=== PATIENT | male | born 1960 | race Caucasian/White ===

== ENCOUNTER → 2017-12-16 | Outpatient (CLI) | payer BC ==
--- NOTE | 2017-12-16 20:21 | CONS ---
CONSULTATION DATE OF SERVICE: 12/16/2017 57-year-old gentleman has been evaluated in the sleep center for possible obstructive sleep apnea-hypopnea syndrome. HISTORY OF PRESENT ILLNESS SLEEP WAKE EVALUATION: SLEEP SCHEDULE: Patient usual sleep schedule from 10 p.m. to 5:00 am, working days and from 11:00 p.m. to 6 am on weekends. FALLING ASLEEP: Usually no problem with falling asleep. He does not watch TV in bedroom. DURING SLEEP: According to his , he has loud snoring, witnessed episodes of stopped breathing during the sleep. Patient wakes up from sleep with choking, nocturia, dry mouth, heartburn, restless legs and sleep talking up to 6 times per night with nocturia x1. DURING THE DAY/SLEEP WAKE EVALUATION: No history of hypnagogic hallucinations, sleep paralysis or cataplexy. During the day, patient feels significantly sleepy. [place] Sleepiness Scale increased to 13. PAST MEDICAL HISTORY: Positive for episodes of colon obstruction. PAST SURGICAL HISTORY: Colon resection in 2007 for colon obstruction. SOCIAL HISTORY: Positive for smoking in the past, quit 20 years ago. Alcohol consumption 2 beers up to 3 times per week. FAMILY HISTORY: The patient does not have information about parents. His mom is healthy. The patient does not have information about his father at the present time. REVIEW OF SYSTEMS: Multiple awakenings from sleep, sleepiness during the day. PHYSICAL EXAM: gentleman without distress. BP 115/83, HR 80, RR 16, height 6 feet 2 inches. Weight 234, BMI 30.0, temperature 98.1. Oxygen saturation on room air 96%. Oropharynx low position of soft palate. Restriction of nasal breathing. Wide neck, 16 and one quarter inches in circumference. Neck Supple, no JVD. Thyroid is not palpable. LUNGS Clear to percussion and to auscultation. Good air exchange. No wheezing or rhonchi. HEART S1, S2 regular. No murmurs, gallops, or rubs. ABDOMEN : Soft and nontender. Bowel sounds are present. No organomegaly appreciated. EXTREMITIES No clubbing or cyanosis. FLIGHT LINE SERVICE ATTENDANT Awake, alert, and oriented X3. Cranial nerves 2 to 7 intact. There is no fasciculation or atrophy. noted. No focal deficits observed. IMPRESSION: 1. Snoring, witnessed episodes of stopped breathing during the sleep for multiple awakenings from sleep, low position of soft palate, and excessive daytime sleepiness. [place] Sleepiness Scale increased to 13. Wide neck. Obstructive sleep apnea-hypopnea syndrome. 2. Mild obesity, borderline to overweight, BMI over 30. 3. Status post colon obstruction. 4. Status post resection of colon for obstruction in 2007. PLAN: 1. Home sleep apnea test to confirm abnormalities of respiration during sleep. 2. Following plan after reviewing results of the sleep study. 3. Sleep hygiene with regular time bed for at least 8 hours. 4. No driving if feeling sleepiness. Thank you very much for referring this patient for consultation. Sincerely, Brown Frank MD, PhD, FAASM Diplomat of [employer] Taxi Proprietor of [facility] [place] MMODL / FAITHN: [id number] /
== END | disposition home or self-care (01) ==
LOC: SLEEP 16:26
PROVIDERS: ATTEND Internal Medicine
DX: G47.33 Obstructive sleep apnea (adult) (pediatric) (principal); E66.9 Obesity, unspecified; Z68.30 Body mass index [BMI] 30.0-30.9, adult; Z98.890 Other specified postprocedural states; Z87.19 Personal history of other diseases of the digestive system; Z87.891 Personal history of nicotine dependence
CPT/HCPCS: 99211

== ENCOUNTER → 2020-08-22 | Outpatient (CLI) | payer BC ==
--- NOTE | 2020-08-23 04:28 | SFUN ---
SLEEP CENTER FOLLOW UP NOTE DATE OF SERVICE: 08/22/2020 This 60-year-old gentleman who has been followed in Sleep Center for treatment of obstructive sleep apnea-hypopnea syndrome. The patient had home sleep apnea test in 2018 and since that time, he never came for follow-up visit to Sleep Clinic after he received the CPAP unit. The patient is able to use CPAP unit every night for the whole night and he sleeps well with the machine. No snoring. [place] Sleepiness Scale today is 2. I checked his CPAP unit. CPAP pressure ranged 8-15 with average pressure of 10 cm of water. Usage is 30 out of 30 nights for more than 4 hours with average usage 7.5 hours per night. Leak is only 8 L/minute which is good range. Apnea-hypopnea index is perfect 0.2. MEDICATIONS: None. PHYSICAL EXAMINATION: GENERAL: Patient in no distress. VITAL SIGNS: BP 126/89, HR 76, RR 15, height 6 feet 2-1/2 inches, weight 244 pounds, BMI 30.9, temperature 98.5, oxygen saturation on room air 98%. HEENT: PERRLA, EOMI. Evaluation of oropharynx shows low position of soft palate. NECK: Supple, no JVD. Thyroid is not palpable. LUNGS: Clear to percussion and to auscultation. Good air exchange. No wheezing or rhonchi. HEART: S1, S2 regular. No murmurs, gallops, or rubs. ABDOMEN: Soft and nontender. Bowel sounds are present. No organomegaly appreciated. EXTREMITIES: No clubbing or cyanosis. HEALTHCARE RECRUITER: Awake, alert, and oriented X3. Cranial nerves 2 to 7 intact. There is no fasciculation or atrophy. noted. No focal deficits observed. IMPRESSION: 1. Obstructive sleep apnea-hypopnea syndrome. Patient demonstrated 100% compliance with treatment, benefitting from treatment. 2. Mild obesity. 3. History of colon obstruction. 4. Status post colon resection for colon obstruction. PLAN: 1. Patient will continue to use PAP equipment every night for the whole night. 2. Sleep hygiene with regular time in bed for at least 7-1/2 to 8 hours. 3. Precautions related to driving. No driving if feeling sleepiness. 4. I will maintain all necessary prescription for PAP supplies including mask, tube, filters. 5. Watching weight. 6. No driving if feeling sleepiness. 7. Follow-up visit in 6 months or earlier if patient has any problems. Thank you very much for allowing me to participate in management of your patient. Sincerely, Brown Frank MD, PhD, FAASM Diplomat of [employer] Board of Internal Medicine Loan Originator of [facility] [place] MMRUSS / DANA: [id number] /
== END | disposition home or self-care (01) ==
LOC: SLEEP 16:29
PROVIDERS: ATTEND Internal Medicine
DX: G47.33 Obstructive sleep apnea (adult) (pediatric) (principal); E66.9 Obesity, unspecified; Z87.19 Personal history of other diseases of the digestive system; Z98.890 Other specified postprocedural states; Z99.89 Dependence on other enabling machines and devices; Z68.30 Body mass index [BMI] 30.0-30.9, adult

== ENCOUNTER → 2023-03-17 | Outpatient (CLI) | payer BC ==
--- NOTE | 2023-03-17 17:21 | P.PN ---
Subjective DATE: 03/17/2023 FOLLOW UP VISIT. Patient with obstructive sleep apnea hypopnea syndrome return to sleep center for follow-up visit. Information from previous visit have been reviewed. Patient is using PAP equipment every night for the whole night, getting PAP supplies in time. The patient does not have significant problems with the mask, PAP unit and humidification. [place] sleepiness scale is 9. I checked information from PAP unit. PAP unit pressure 8.8-15, average 10.3 cm H2O. Usage is 100 % for more then 4 hours, average 7.3 hours per night. Leak is 19.0 l/m, which is in acceptable range. Apnea Hypopnea Index is 0.1, which is normal. MEDICATIONS:1. Out of the counter medication for acid reflux, patient does not remember the name. During physical exam: GENERAL: A pleasant patient without any distress. VITAL SIGNS: BP 134/87, HR 61, RR 12 , weight 237, temperature 97.5, oxygen saturation at room air 99 % . HEENT: PERRLA, EOMI.low position of soft palate, Mallapati 3 . NECK: Supple. No JVD. LUNGS: Clear to percussion and to auscultation. Good air exchange. No wheezing or rhonchi. HEART: S1, S2 regular. ABDOMEN: Soft and nontender.[] EXTREMITIES: No clubbing or cyanosis. DOUBLE ENDING MACHINE OPERATOR: Awake, alert, and oriented x3. No focal deficit. Impressions: 1. Obstructive sleep apnea-hypopnea syndrome. Patient demonstrated great compliance with treatment, benefiting from treatment. 2. History of colon obstruction. 3. Status post resection of colon obstruction. 4. Overweight, BMI 28.8, patient lost 7 pounds since previous visit. 5. History of surgical treatment for basal cell carcinoma of the skin over the nose area. Plan: 1. Continue using PAP equipment every night for the whole night. 2. To change air filter at least 1-2 times per month. 3. PAP unit should stay lower then position of the head. 4. Advised patient to remove all remaining water from humidifier canister daily and make it dry after each usage. Refill canister with fresh distilled water before each usage. 5. Sleep hygiene with regular time in bed for at least 8 hours. 6. Precautions related to driving. No driving if feel any sleepiness. 7. I will maintain prescription for PAP supplies including mask, tube, filters. 8. Follow up visit in 6 months or earlier if patient has any problems. 9. Watching weight. Thank you very much for allowing me to participate in the management of your patient. Brown Frank MD, PhD, FAASM. Diplomat of [place] [employer], Sleep Medicine Board by [place] [employer] Water Inspector of [facility] [place]
== END ==
LOC: 3 N SLEEP 16:04
PROVIDERS: ATTEND Internal Medicine
DX: G47.33 Obstructive sleep apnea (adult) (pediatric) (principal); K21.9 Gastro-esophageal reflux disease without esophagitis; E66.3 Overweight; Z68.28 Body mass index [BMI] 28.0-28.9, adult; Z85.828 Personal history of other malignant neoplasm of skin; Z99.89 Dependence on other enabling machines and devices; Z90.49 Acquired absence of other specified parts of digestive tract
CPT/HCPCS: 99212

== ENCOUNTER → 2023-10-13 | Outpatient (CLI) | payer BC ==
--- NOTE | 2023-10-13 17:14 | P.PN ---
Subjective DATE: 10/13/2023 FOLLOW UP VISIT. Patient with obstructive sleep apnea hypopnea syndrome return to sleep center for follow-up visit. Information from previous visit have been reviewed. Patient is using PAP equipment every night for the whole night, getting PAP supplies in time. The patient does not have significant problems with the mask, PAP unit and humidification. [place] sleepiness scale is 5, which is normal. I checked information from PAP unit. PAP unit pressure 9.2-15, average 10.9 cm H2O. Usage is 100 % for more then 4 hours, average 7.2 hours per night. Leak is 5.5 l/m, which is in acceptable range. Apnea Hypopnea Index is 0.2, which is normal. MEDICATIONS: None During physical exam: GENERAL: A pleasant patient without any distress. VITAL SIGNS: BP 124/82, HR 71, RR 12 , weight 237.8, temperature 97.9, oxygen saturation at room air 98 % . HEENT: PERRLA, EOMI.low position of soft palate, Mallapati 3 . NECK: Supple. No JVD. LUNGS: Clear to percussion and to auscultation. Good air exchange. No wheezing or rhonchi. HEART: S1, S2 regular. ABDOMEN: Soft and nontender.[] EXTREMITIES: No clubbing or cyanosis. DIRECTOR OF COMMUNITY CENTER: Awake, alert, and oriented x3. No focal deficit. Impressions: 1. Obstructive sleep apnea-hypopnea syndrome. Patient demonstrated great compliance with treatment, benefiting from treatment. 2. Very mild obesity borderline with overweight, BMI 30.4. 3. History of colon obstruction, status post: colon resection. 4. Status post surgical treatment for basal cell carcinoma on the nose. Plan: 1. Continue using PAP equipment every night for the whole night. 2. To change air filter at least 1-2 times per month. 3. PAP unit should stay lower then position of the head. 4. Advised patient to remove all remaining water from humidifier canister daily and make it dry after each usage. Refill canister with fresh distilled water before each usage. 5. Sleep hygiene with regular time in bed for at least 8 hours. 6. Precautions related to driving. No driving if feel any sleepiness. 7. I will maintain prescription for PAP supplies including mask, tube, filters. 8.Watching weight. 9. Follow up visit in 6 months or earlier if patient has any problems. Thank you very much for allowing me to participate in the management of your patient. Brown Frank MD, PhD, FAASM. Diplomat of [employer] [employer], Sleep Medicine Board by [employer] Field Agronomist of [facility] [place]
== END ==
LOC: 3 N SLEEP 16:05
PROVIDERS: ATTEND Internal Medicine
DX: G47.33 Obstructive sleep apnea (adult) (pediatric) (principal); E66.9 Obesity, unspecified; Z99.89 Dependence on other enabling machines and devices; Z85.828 Personal history of other malignant neoplasm of skin; Z68.30 Body mass index [BMI] 30.0-30.9, adult
CPT/HCPCS: 99212

== ENCOUNTER → 2024-06-14 | Outpatient (CLI) | payer BC ==
[2024-06-14 16:31] VITALS: BP 121/84; PULSE 80; RESP 16; TEMP 98.1
--- NOTE | 2024-06-14 16:58 | P.PROGSL ---
Subjective DATE: 06/14/2024 FOLLOW UP VISIT. Patient with obstructive sleep apnea hypopnea syndrome return to sleep center for follow-up visit. Information from previous visit have been reviewed. Patient is using PAP equipment every night for the whole night, getting PAP supplies in time. The patient does not have significant problems with the mask, PAP unit and humidification. [place] sleepiness scale is 6, which is normal. I checked information from PAP unit. PAP unit pressure 9.6-15.4, average 10.9 cm H2O. Usage is 100% for more then 4 hours, average 7.5 hours per night. Leak is 14 l/m, which is in acceptable range. Apnea Hypopnea Index is perfect 0.3. MEDICATIONS have been reviewed, please see below. During physical exam: GENERAL: A pleasant patient without any distress. VITAL SIGNS: Please see below, weight is 137 lbs. HEENT: PERRLA, EOMI.low position of soft palate, Mallapati 3. NECK: Supple. No JVD. LUNGS: Clear to percussion and to auscultation. Good air exchange. No wheezing or rhonchi. HEART: S1, S2 regular. ABDOMEN: Soft and nontender.[] EXTREMITIES: No clubbing or cyanosis. STEEL RULE INSPECTOR: Awake, alert, and oriented x3. No focal deficit. Impressions: 1. Obstructive sleep apnea-hypopnea syndrome. Patient demonstrated great compliance with treatment, benefiting from treatment. 2. Mild obesity, BMI 30.8, no changes of weight since previous visit. 3. Status post colon resection for colon obstruction in the past. 4. Status post basal cell carcinoma on the nose area treated surgically. Plan: 1. Continue using PAP equipment every night for the whole night. 2. Sleep hygiene with regular time in bed for at least 7.5-8 hours 3. PAP unit should stay lower then position of the head. 4. Advised patient to remove all remaining water from humidifier canister daily and make it dry after each usage. Refill canister with fresh distilled water before each usage. 5. Watching and losing weight. 6. Precautions related to driving. No driving if feel any sleepiness. 7. I will maintain prescription for PAP supplies including mask, tube, filters. 8. Follow up visit in 6 months or earlier if patient has any problems. Thank you very much for allowing me to participate in the management of your patient. Brown Frank MD, PhD, FAASM. Diplomat of [place] [employer], Sleep Medicine Board by [place] [employer] Lime Boiler of [facility] [place] Objective - Vital Signs Vital Signs: Vital Signs Temp 98.1 F 06/14/24 16:31 Pulse 80 06/14/24 16:31 Resp 16 06/14/24 16:31 BP 121/84 06/14/24 16:31 Pulse Ox 98 06/14/24 16:31 FiO2 Intake & Output 06/13/24 06/14/24 06/14/24 18:59 06:59 18:59 Weight 107.501 kg
== END ==
LOC: 3 N SLEEP 16:23
PROVIDERS: ATTEND Internal Medicine
CPT/HCPCS: 99212